=== PATIENT | male | born 1950 | race Two or more races ===

== ENCOUNTER 2019-01-10 14:47 | Inpatient (IN) | payer OTHER ==
[~2019-01-10] VITALS: Ht 182.9 cm; Wt 108.9 kg
[2019-01-21] MEDS ORDERED: LISINOPRIL2.5 MG PO (09:29)
[2019-01-21] MEDS ORDERED: ELIQUIS2.5 MG PO (09:30)
[2019-01-21] MEDS ORDERED: CRESTOR10 MG PO (09:30)
== END 2019-02-01 17:47 | disposition home or self-care (01) | DRG 330 ==
LOC: O/R 01-29 06:31 → SURH 01-29 06:31 → O/R 01-29 15:03 → SURH 01-29 15:05
PROVIDERS: ADMIT Colon & Rectal Surgery
PROC: 07BC4ZX Excision of Pelvis Lymphatic, Percutaneous Endoscopic Approach, Diagnostic (ICD-10-PCS; 2019-01-29)
PROC: 0DTU4ZZ Resection of Omentum, Percutaneous Endoscopic Approach (ICD-10-PCS; 2019-01-29)
PROC: 0DTF4ZZ Resection of Right Large Intestine, Percutaneous Endoscopic Approach (ICD-10-PCS; principal; 2019-01-29 10:30)
DX: C18.2 Malignant neoplasm of ascending colon (principal); K92.1 Melena; K66.8 Other specified disorders of peritoneum; R59.0 Localized enlarged lymph nodes; K63.89 Other specified diseases of intestine; I10 Essential (primary) hypertension; I48.0 Paroxysmal atrial fibrillation; Z79.01 Long term (current) use of anticoagulants; Z95.0 Presence of cardiac pacemaker

== ENCOUNTER 2019-03-13 05:00 | Day surgery (SDC) | payer OTHER ==
[~2019-03-13 05:00] MED LIST: CRESTOR10 MG PO; ELIQUIS2.5 MG PO; LISINOPRIL2.5 MG PO
== END 2019-03-13 10:55 | disposition home or self-care (01) ==
LOC: CIR.AMB 05:00
DX: C18.2 Malignant neoplasm of ascending colon (principal)
CPT/HCPCS: 36561; C1751

== ENCOUNTER 2020-01-31 12:53 | Day surgery (SDC) | payer OTHER | END 2020-01-31 16:30 | disposition home or self-care (01) | LOC: AMB-ENDOS 12:53 | PROVIDERS: ATTEND Colon & Rectal Surgery | DX: D12.3 Benign neoplasm of transverse colon (principal); K64.1 Second degree hemorrhoids; Z20.828 Contact with and (suspected) exposure to other viral communicable diseases ==

== ENCOUNTER 2023-03-08 06:10 | Day surgery (SDC) | payer OTHER ==
[2023-03-01 09:34] LABS: PH,URINE 5.5 (5.0-8.0); URINE APPEARANCE Cloudy; URINE BILIRRUBIN Negative (NEGATIVE); URINE BLOOD Negative; URINE COLOR Yellow; URINE GLUCOSE Negative (NEGATIVE); URINE LEUKOCYTE Negative; URINE NITRATE Negative; URINE PROTEIN Negative (NEGATIVE); URINE UROBILINOGEN 0.2 E.U./dl
[2023-03-01 09:38] LABS: HEMOGLOBIN 13.9 g/dL (13-16.00); MEAN CELL VOLUME 91.7 fL (80.0-100.00); MEAN CORPUSCULAR HEMOGLOBIN 30.4 pg (27.00-32.0); MEAN CORPUSCULAR HGB CONC 33.1 g/dl (32.0-36.0); PLATELET COUNT 173 K/uL (150-450); RED BLOOD COUNT 4.58 M/uL (4.00-6.00)
[2023-03-01 09:39] LABS: URINE BACTERIA 18.8 uL (0.0-1933); URINE EPITHELIAL CELLS 7.2 uL (0.0-38.8); URINE RBC 6.3 uL (0.0-20.8); URINE WBC 4.6 uL (0.0-23.2)
[2023-03-01 10:04] LABS: CALCIUM 8.7 mg/dL (8.5-10.1); CREATININE SERUM 1.05 mg/dL (0.70-1.30); GFR 69.43; POTASSIUM 4.27 mEq/L (3.5-5.1)
[2023-03-01 10:05] LABS: INR 1.04; PARTIAL THROMBOPLASTIN TIME 27.9 SECONDS (22.0-34.0); PROTHROMBIN TIME 10.9 SECONDS (9.0-11.5)
[~2023-03-08 06:10] MED LIST changes: +B12 ACTIVE1000 MCG PO; +CARVEDILOL6.25 MG; +HORIZANT300 MG PO; +VITAMIN D310 MCG/1 M PO
[2023-03-08] MEDS ORDERED: PERCOCET 5-3251 EACH PO (13:27)
[2023-03-08] MEDS ORDERED: NEURONTIN300 MG PO (13:27)
[2023-03-08] MEDS ORDERED: POLY119PG PO (13:27)
== END 2023-03-08 16:05 | disposition home or self-care (01) ==
LOC: CIR.AMB 06:10
PROVIDERS: ATTEND Surgery
DX: K43.0 Incisional hernia with obstruction, without gangrene (principal); Z88.0 Allergy status to penicillin; Z88.6 Allergy status to analgesic agent; Z20.822 Contact with and (suspected) exposure to COVID-19